=== PATIENT | male | born 1975 | race Caucasian/White ===

== ENCOUNTER 2017-01-25 08:40 | Day surgery (SDC) | payer OTHER ==
[2017-01-09 08:11] VITALS: BMI 40.6
--- NOTE | 2017-01-25 01:15 | P.HPIM ---
History of Present Illness H&P Date: 01/25/17 Chief Complaint: Pressure/fluid in the right ear This patient is a 41-year-old male who recently presented to my office complaining of pressure and his right ear. The patient has a history of the ALLERGIC rhinitis currently was on Zyrtec and Singulair. He denied runs a temperature or having any yellow or green colored discharge from his nose. At the time that he is seen in my office clinical examination intranasally revealed moderate septal deviation with a moderate amount of mucus on the mucous membranes and draining down posterior pharynx. Examination ears revealed evidence of fluid in the right middle ear space. The patient was placed on a course of Zithromax Z-Josef and a Decadron dose pack. He was seen back approximately 3 weeks later and was noted not to be any better. He was placed on the second 10 day course of Decadron and upon returning to the office it was noted that he still had no significant improvement. Clinical examination of ears revealed chronic right serous otitis media, so-called glue ear. It was recommended that the patient undergo a right myringotomy with insertion of a ventilation tube under IV sedation. Past medical history: Reveals that he has an ALLERGY to sulfa. His current medications include Zyrtec , Singulair. There is no history of asthma, diabetes, or hypertension and the review of systems is completely unremarkable. Previous surgeries include:a cholecystectomy, right myringotomy with insertion of ventilation tube 2, and a colonoscopy. Physical examination: This patient is a 41-year-old male who is alert cooperative. HEENT exam: The patient is normocephalic tympanic membrane on the right is dull with fluid in right middle ear space examination. Examination of the left ear reveals that is on unremarkable. Pupils equal round reactive to light and accommodation extraocular movements within normal limits of today's examination. Intranasal examination reveals a severe septal deviation with compensatory hypertrophy of inferior turbinates and a moderate amount of thick, clear mucus on mucous membranes and draining down posterior pharynx. Palpation of the neck, cranial nerves II through XII, and the remainder of the head and neck exam all within normal limits. Chest cardiovascular: Both lung atkinson are clear to percussion and auscultation, the patient is in one S2 are present without evidence he murmurs S3's, or S4's. Peripheral pulses are bilaterally symmetrical. Abdomen: There is no evidence any masses, megaly or tenderness the abdomen is soft. Musculoskeletal and neurologic: Rectal exam is deferred at this time because the patient is on a regular basis and his family physician's office. The remainder of the physical exam is unremarkable. Impression: Chronic right serous otitis media. Plan: The patient is scheduled to undergo a right myringotomy with insertion of ventilation tubes under IV sedation. Attention RNs in the pre-surgical area: I have not ordered any pre-surgical prophylactic antibiotics for this patient. If any pre-surgical prophylactic antibiotics were sent to the pre-surgical area from the pharmacy department, they should be returned to the pharmacy department and make sure that the patient's account credited appropriately. Past Medical History Past Medical History: Hyperlipidemia Additional Past Medical History / Comment(s): SEASONAL ALLERGIES History of Any Multi-Drug Resistant Organisms: None Reported Past Surgical History: Cholecystectomy Additional Past Surgical History / Comment(s): RT MYRINGOTOMY. URETHRAL SX TO REMOVE SCAR TISSUE Past Anesthesia/Blood Transfusion Reactions: Motion Sickness, Postoperative Nausea & Vomiting (PONV) Past Psychological History: No Psychological Hx Reported Smoking Status: Never smoker - Past Family History Mother Family Medical History: No Reported History Medications and Allergies Home Medications Medication Instructions Recorded Confirmed Type Cetirizine HCl [Zyrtec] 10 mg PO DAILY 01/09/17 01/18/17 History Montelukast [Singulair] 10 mg PO DAILY 01/09/17 01/18/17 History Simvastatin 40 mg PO DAILY 01/09/17 01/18/17 History Allergies Allergy/AdvReac Type Severity Reaction Status Date / Time Sulfa (Sulfonamide Allergy Rash/Hives Verified 01/18/17 14:20 Antibiotics) Thrombosis Risk Factor Assmnt - Choose All That Apply Any of the Below Risk Factors Present?: Yes Each Factor Represents 1 point: Age 41-60 years, Minor surgery planned, Obesity (BMI >25) Each Risk Factor Represents 2 Points: Laparoscopic surgery Thrombosis Risk Factor Assessment Total Risk Factor Score: 5 Thrombosis Risk Factor Assessment Level: High Risk
[~2017-01-25 08:40] MED LIST: DEXAMETHASONE SOD PHOSPHATE 10 MG/ML 1 ML VIAL IV ONE; HYDROmorphone 1 MG/ML 1 ML SYRINGE IVP PRN; LACTATED RINGERS 1,000 ML IV SCH; LIDOCAINE 1% 20 ML VIAL (10MG/ML) FOR IV START INTRADERMA PRN; MIDAZOLAM 2 MG/2 ML VIAL IV PRN; ONDANSETRON 4 MG/2 ML VIAL IVP ONE; Pre Op ABX Message 1 EACH MISC MISCELLANE ONE; SCOPOLAMINE 1.5MG/72HR PATCH TRANSDERM ONE
[2017-01-25] MEDS ORDERED: fentaNYL (PF) 50 MCG/ML 2 ML AMP ONE (10:13)
[2017-01-25] MEDS ORDERED: MIDAZOLAM 2 MG/2 ML VIAL ONE (10:13)
[2017-01-25] MEDS ORDERED: PROPOFOL 10 MG/ML 20 ML VIAL IV ONE (10:13)
[2017-01-25] MEDS ORDERED: SUCCINYLCHOLINE CHLORIDE VIAL 200 MG/10 ML VIAL IV ONE (10:13)
[2017-01-25] MEDS ORDERED: OFLOXACIN 0.3% OPHTH DROPS 5 ML BOTTLE RIGHT EAR ONE (10:28)
[2017-01-25] MEDS ORDERED: EPINEPHrine 1 MG/ML (MDV) 30 ML VIAL IRRIGATION ONE (10:34)
[2017-01-25] MEDS ORDERED: LACTATED RINGERS 1,000 ML IV ONE (10:37)
[2017-01-25] MEDS ORDERED: CIPROFLOXACIN-DEXAMETH 0.3-0.1% DROPS 7.5 ML BTL RIGHT EAR ONE (10:45)
[2017-01-25 11:29] VITALS: TEMP 97.4
[2017-01-25 11:41] VITALS: RESP 18
[2017-01-25 12:57] VITALS: BP 115/69; PULSE 98
--- NOTE | 2017-01-28 20:37 | P.OP ---
Date of Procedure: 10/26/16 Preoperative Diagnosis: Postoperative Diagnosis: Procedure(s) Performed: Implants: Pathology: none sent Condition: stable Indications for Procedure: Operative Findings: Description of Procedure:
--- NOTE | 2017-01-28 20:47 | P.OP ---
Preoperative Diagnosis: Postoperative Diagnosis: Procedure(s) Performed: Implants: Indications for Procedure: Operative Findings: Description of Procedure: Date of surgery: 01/25/2017. Preoperative diagnosis: Chronic right serous otitis media. Postoperative diagnosis: Chronic right serous otitis media. Anesthesia: Gen. Operative procedure: Right myringotomy with insertion of Wanda T-type ventilation tube. Operating surgeon: Dr. Vicky Mendoza. Complications: None. Operative procedure: The patient was placed on operating table in supine position and after uneventful induction endotracheal intubation satisfactory general anesthesia was obtained. Next the patient's right ear was draped in usual customary fashion. Following this using the Zeiss operating microscope and a #3 aural speculum the right external auditory canal was cleansed of wax and debris. Inspection of the right tympanic membrane revealed that there was an occluded ventilation tube present and this was removed using a pair of alligator forceps and the tube was discarded. Next using the myringotomy knife an incision was made in the anterior-inferior quadrant of the right tympanic membrane. Fluid was suctioned from the right middle ear space. It was noted that there was a small amount of granulation tissue present in the right middle ear space. This was removed with a Hayes tip suction. It was also noted that the right tympanic membrane was quite thick. Next a Wanda T- type ventilation tube was inserted through previously made myringotomy incision without difficulty. At this point the procedure was terminated there were no intra-operative complications and the patient tolerated procedure well and was returned to the recovery room in satisfactory condition.
== END 2017-01-25 14:14 | disposition home or self-care (01) ==
LOC: OR 08:40
PROVIDERS: ATTEND Otolaryngology
DX: H65.21 Chronic serous otitis media, right ear (principal); J30.9 Allergic rhinitis, unspecified; E78.5 Hyperlipidemia, unspecified; E66.9 Obesity, unspecified; K21.9 Gastro-esophageal reflux disease without esophagitis; Z79.899 Other long term (current) drug therapy; Z88.2 Allergy status to sulfonamides
CPT/HCPCS: 69436; J0171; J2250; J0330; J1100; J2405; J3010; J2704

== ENCOUNTER → 2023-08-05 | Outpatient (CLI) | payer OTHER ==
--- NOTE | 2023-08-05 14:49 | US ---
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 X 1 month. Hx Surgery to remove interna l scar tissue from the penis x 20 years ago. Fell x 1 month ago onto backside TECHNIQUE: Medical Billing Representative notes: Scanned the perineum, space between testicles and rectum FINDINGS: The chemistry teacher notes: No abnormal findings at patients AOC IMPRESSION: Targeted ultrasound at the area of concern, perineum between the scrotum and anus. No discrete sonogr aphic abnormality is identified.
== END | disposition home or self-care (01) ==
LOC: RADUSWWP 14:14
PROVIDERS: ATTEND Family Medicine
DX: R10.2 Pelvic and perineal pain (principal)
CPT/HCPCS: 76857

== ENCOUNTER 2023-11-19 09:25 | Day surgery (SDC) | payer OTHER ==
[2023-11-18 10:02] VITALS: BMI 43.4
[2023-11-19] MEDS: LACTATED RINGERS 1,000 ML IV SCH (09:42)
[2023-11-19 09:56] LABS: Glucose,Whole Blood 119 mg/dL (70-110)
[2023-11-19 10:21] VITALS: RESP 18; TEMP 97.4
[2023-11-19] MEDS ORDERED: PROPOFOL 10 MG/ML 20 ML VIAL IV ONE (10:50)
--- NOTE | 2023-11-19 11:12 | P.PCN ---
Date of Procedure: 11/19/23 Procedure(s) Performed: BRIEF HISTORY: Patient is a 48-year-old pleasant white male scheduled for an elective colonoscopy as a part of screening for colon cancer. PROCEDURE PERFORMED: Colonoscopy. PREOPERATIVE DIAGNOSIS: Screening for colon cancer. IV sedation per Anesthesia. PROCEDURE: After informed consent was obtained, the patient, was brought into the endoscopy unit. IV sedation was administered by Anesthesia under continuous monitoring. Digital rectal examination was normal. Initially the Olympus CF-160 flexible video colonoscope was then inserted in the rectum, gradually advanced into the cecum without any difficulty. Careful examination was performed as the scope was gradually being withdrawn. Ileocecal valve and the appendiceal orifice were visualized and appeared normal. Prep was fair.. Mucosa of the cecum, ascending colon, transverse colon, descending colon, sigmoid colon, and rectum appeared normal. Retroflexion was performed in the rectum and no lesions were seen. The patient tolerated the procedure well. IMPRESSION: Normal-appearing colon from rectum to cecum with no evidence of colorectal neoplasia. RECOMMENDATIONS: Findings of this examination were discussed with the patient as well as his family. He was advised to have repeat screening colonoscopy in 10 years.
[2023-11-19 11:50] VITALS: BP 125/72; PULSE 78
== END 2023-11-19 12:02 | disposition home or self-care (01) ==
LOC: ORWHC2ENDO 09:25
PROVIDERS: ATTEND Internal Medicine Gastroenterology
DX: Z12.11 Encounter for screening for malignant neoplasm of colon (principal); E78.5 Hyperlipidemia, unspecified; G47.33 Obstructive sleep apnea (adult) (pediatric); E11.9 Type 2 diabetes mellitus without complications; K21.9 Gastro-esophageal reflux disease without esophagitis; E66.01 Morbid (severe) obesity due to excess calories; Z79.899 Other long term (current) drug therapy; Z79.82 Long term (current) use of aspirin; Z90.49 Acquired absence of other specified parts of digestive tract; Z88.2 Allergy status to sulfonamides; Z98.890 Other specified postprocedural states
CPT/HCPCS: 45378; J2704